=== PATIENT | male | born 1975 | race Caucasian/White ===

== ENCOUNTER 2021-06-13 19:55 | Emergency (ER) | payer OTHER ==
[~2021-06-13] VITALS: Ht 188 cm; Wt 127.0 kg
[2021-06-14 03:53] VITALS: BP 157/83
== END 2021-06-13 23:22 | disposition home or self-care (01) ==
LOC: ER 19:55
DX: K12.0 Recurrent oral aphthae (principal); F41.9 Anxiety disorder, unspecified; Z88.0 Allergy status to penicillin; Z87.891 Personal history of nicotine dependence